=== PATIENT | female | born 1970 | race Caucasian/White ===

== ENCOUNTER 2020-09-29 11:11 | Emergency (ER) | payer BC ==
[~2020-09-29] VITALS: Ht 160 cm; Wt 104.5 kg
[2020-09-29 12:41] VITALS: BP 153/81
--- NOTE | 2020-09-29 16:54 | NUR ---
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
[2020-09-29] MEDS ORDERED: IBUP-1985 PO (16:55)
[2020-09-29] MEDS ORDERED: ibuprofen 200mg tablet PO ONE (16:55)
== END 2020-09-29 17:18 | disposition home or self-care (01) ==
LOC: ER 11:11
DX: S82.832A Other fracture of upper and lower end of left fibula, initial encounter for closed fracture (principal); M25.572 Pain in left ankle and joints of left foot; R20.0 Anesthesia of skin; Z72.89 Other problems related to lifestyle; Z79.899 Other long term (current) drug therapy; X58.XXXA Exposure to other specified factors, initial encounter; Y93.89 Activity, other specified; Y92.89 Other specified places as the place of occurrence of the external cause; Y99.8 Other external cause status; I50.9 Heart failure, unspecified
CPT/HCPCS: 29515; 73600; 99283